=== PATIENT | male | born 1995 | race Caucasian/White ===

== ENCOUNTER 2017-02-26 22:37 | Emergency (ER) | payer BC, MEDICAID, OTHER ==
[~2017-02-26] VITALS: Ht 180.3 cm; Wt 75.0 kg
[~2017-02-26 22:37] MED LIST: ALBU17I INH; Z.0.NO CURRENT MEDS
[2017-02-26 23:08] VITALS: BP 134/60; PULSE 90; RESP 12; TEMP 99.8; O2SAT 96
[2017-02-26] MEDS ORDERED: RESP: LIDOCAINE HCL 4% PF 5 ML NEB NEB ONE (23:45)
[2017-02-26] MEDS ORDERED: RESP: ALBUTEROL 2.5 MG/IPRATROPIUM 0.5 MG NEB (SCH) NEB ONE (23:45)
[2017-02-26] MEDS ORDERED: predniSONE 20 MG TAB PO ONE (23:45)
--- NOTE | 2017-02-26 23:47 | PD ---
HPI Chief Complaint: Respiratory Symptoms Time Seen by Provider: 23:36 Travel History International Travel<30 days: No Contact w/Intl Traveler<30days: No Traveled to known affect area: No History of Present Illness HPI The patient is a 21-year-old male who presents to the emergency department for 2 day history of chest pain, shortness of breath, and cough. The patient complains of anterior chest tightness, mild and intermittent shortness of breath. He also complains of a productive cough producing dark colored sputum without any visible blood. The patient denies any personal history of reactive airway disease, asthma, bronchitis, or pneumonia. The patient denies any tobacco use. 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 He does note subjective fevers without any chills or sweats. He denies any sore throat. Symptoms are moderate, there are no current alleviating or exacerbating factors. PFSH Past Medical History Medical History: Denies Significant Hx Developmental Delay: No Immunizations Current: Yes Past Surgical History Narrative Surgical [place] tooth surgery Social History Alcohol Use: No Tobacco Use: No Substance Use: No Allergies-Medications (Allergen,Severity, Reaction): Coded Allergies: No Known Allergies (Verified , 02/26/17) Reported Meds & Prescriptions Reported Meds & Active Scripts Active Proventil Mdi (Albuterol Sulfate) 17 Gm Aero 2 Puff INH Q4HPRN Reported No Current Meds (Miscellaneous Medication) Misc Review of Systems Except as stated in HPI: all other systems reviewed are Neg General / Constitutional: Positive: Fever (subjective) HENT: Positive: Rhinitis Cardiovascular: Positive: Chest Pain or Discomfort Respiratory: Positive: Cough, Shortness of Breath Gastrointestinal: No: Nausea, Vomiting, Abdominal Pain Musculoskeletal: No: Myalgias, Arthralgias Physical Exam Narrative GENERAL: Awake, alert, pleasant 21-year-old male who appears his stated age and is in no acute respiratory distress. SKIN: Focused skin assessment warm/dry. HEAD: Atraumatic. Normocephalic. EYES: Pupils equal and round. No scleral icterus. No injection or drainage. ENT: No nasal bleeding or discharge. Mild erythema but no exudate. NECK: Trachea midline. No JVD. CARDIOVASCULAR: Regular rate and rhythm. No murmur appreciated. RESPIRATORY: No accessory muscle use. Few scattered wheezes. GASTROINTESTINAL: Abdomen soft, non-tender, nondistended. No rebound tenderness. MUSCULOSKELETAL: No obvious deformities. No clubbing. No cyanosis. No edema. NEUROLOGICAL: Awake and alert. No obvious cranial nerve deficits. Motor grossly within normal limits. Normal speech. PSYCHIATRIC: Appropriate mood and affect; insight and judgment normal. Data Data Last Documented VS Vital Signs Date Time Temp Pulse Resp B/P Pulse Ox O2 Delivery O2 Flow Rate FiO2 02/26/17 23:08 99.8 90 12 134/60 96 Room Air Orders Chest, Single Ap (02/26/17 ) Albuterol-Ipratropium Neb (Duoneb Neb) (02/26/17 23:45) Lidocaine Pf 4% Neb (Lidocaine Pf 4% Neb (02/26/17 23:45) Prednisone (Deltasone) (02/26/17 23:45) MDM Medical Decision Making Medical Screen Exam Complete: Yes Emergency Medical Condition: Yes Medical Record Reviewed: Yes Interpretation(s) Last Impressions Chest X-Ray 02/26/17 0000 Signed Impressions: Service Date/Time: Sunday, February 26, 2017 23:50 - CONCLUSION: Normal examination. Thomas Alberto Jr., MD Differential Diagnosis Differential diagnosis includes bronchitis, pneumonia, pulmonary embolism, pericarditis, URI, viral syndrome, CHF, IHSS, cardiomyopathy. Narrative Course Chest x-ray was obtained. The patient was administered prednisone 60 mg orally and duo neb 1 with respiratory lidocaine. Chest x-ray reveals a normal examination. The patient's symptoms are consistent with bronchitis versus walking pneumonia, possibly Mycoplasma pneumonia. Patient will be treated with prednisone, albuterol inhaler, Zithromax. The patient is advised to follow-up with a primary physician return if symptoms worsen or progress. He is also advised that his cough may persist for 4-6 weeks. He is advised to follow-up with a primary physician. Diagnosis Primary Impression: Bronchitis Patient Instructions: General Instructions Additional Instructions: Medications as directed. Plenty fluids to stay hydrated. Follow-up with a regular primary physician. Return if symptoms worsen or progress. Med/Other Pt SpecificInfo: Prescription(s) given Scripts Albuterol 18 GM Inh (Ventolin Hfa 18 GM Inh)90 Mcg/Act Aer2 Puff INH Q4H PRN ( SHORTNESS OF BREATH) #1 INHALER Ref 0 Prov:Johnny Lee MD 02/27/17 Azithromycin (Zithromax Z-Devon)250 Mg [id number] Mg PO DIRECTED #1 DSPK Ref 0 500 MG (2 tabs) day 1, then 1 tab days 2-5. Prov:Johnny Lee MD 02/27/17 Prednisone (Deltasone)20 Mg Tab40 Mg PO DAILY 4 Days Ref 0 Prov:Johnny Lee MD 02/27/17 Disposition: 01 DISCHARGE HOME Condition: Stable Johnny Lee MD February 26, 2017 23:47
--- NOTE | 2017-02-27 00:13 | RADRPT ---
EXAM DATE/TIME: 02/26/2017 23:50 [facility] COMPARISON: No previous studies available for comparison. INDICATIONS : Cough. MEDICAL HISTORY : None. SURGICAL HISTORY : None. ENCOUNTER: Initial ACUITY: 2 days PAIN SCORE: 110 LOCATION: Bilateral chest FINDINGS: 2 portable frontal views of the chest demonstrate the lungs to be symmetrically aerated without evide nce of mass, infiltrate or effusion. The cardiomediastinal contours are unremarkable. Osseous struc tures are intact. CONCLUSION: Normal examination. Thomas Alberto Jr., MD on February 27, 2017 at 0:11 Board Certified Radiologist. This report was verified electronically.
[2017-02-27] MEDS ORDERED: ZITHTAB PO (00:26)
[2017-02-27] MEDS ORDERED: PRED-503 PO (00:26)
[2017-02-27] MEDS ORDERED: VENTAER INH (00:26)
== END 2017-02-27 01:10 | disposition home or self-care (01) ==
LOC: NEPD 22:37
DX: J20.9 Acute bronchitis, unspecified (principal); R06.02 Shortness of breath; R05 Cough
CPT/HCPCS: 71010; 94664; 99284; J7512

== ENCOUNTER 2017-05-21 21:52 | Emergency (ER) | payer OTHER ==
[~2017-05-21] VITALS: Ht 193 cm; Wt 77.0 kg
[~2017-05-21 21:52] MED LIST changes: -ALBU17I INH; +PRED-503 PO; +VENTAER INH; -Z.0.NO CURRENT MEDS; +ZITHTAB PO
[2017-05-21 21:59] VITALS: BP 137/59; PULSE 71; RESP 18; TEMP 98.1; O2SAT 98
--- NOTE | 2017-05-21 22:16 | PD ---
HPI Chief Complaint: Medical Clearance Time Seen by Provider: 21:58 Travel History International Travel<30 days: No Contact w/Intl Traveler<30days: No Traveled to known affect area: No History of Present Illness HPI The patient is a 21-year-old male who presents emergency department after a panic attack. The patient does have a history of panic attacks, states he lost his older brother, age 32, week ago last Saturday. They just returned from [place] after the . The patient went [place] earlier [place] and when he returned home he suddenly started crying and had a panic attack according to family. Family states the patient started hyperventilating, was having carpopedal spasms, and appeared to have passed out. However, the patient never did lose consciousness. The patient states his symptoms have resolved since he has slowed his breathing. He denies any swallow lower extremities or history of pulmonary embolism/DVT. He does have a history of similar symptoms in the past secondary to hyperventilation. Symptoms are mild, exacerbated by stress, and currently self alleviating. PFSH Past Medical History Asthma: Yes (SPORTS INDUCED) Developmental Delay: No Diminished Hearing: No Immunizations Current: Yes Tetanus Vaccination: Unknown Influenza Vaccination: No Past Surgical History Oral Surgery: Yes (WISDOM TEETH) Social History Alcohol Use: Yes (OCCASSIONALLY) Tobacco Use: No Substance Use: No Allergies-Medications (Allergen,Severity, Reaction): Coded Allergies: No Known Allergies (Verified , 05/21/17) Reported Meds & Prescriptions Reported Meds & Active Scripts Active No Active Prescriptions or Reported Medications Review of Systems Except as stated in HPI: all other systems reviewed are Neg Cardiovascular: No: Chest Pain or Discomfort Respiratory: Positive: Other (hyperventilation), No: Shortness of Breath Musculoskeletal: Positive: Cramping Psychiatric: Positive: Other (panic attacks) Physical Exam Narrative GENERAL: Awake, alert, very pleasant 21-year-old male who appears his stated age and is in no acute respiratory distress. SKIN: Focused skin assessment warm/dry. HEAD: Atraumatic. Normocephalic. EYES: Pupils equal and round. No scleral icterus. No injection or drainage. NECK: Trachea midline. No JVD. CARDIOVASCULAR: Regular rate and rhythm. No murmur appreciated. RESPIRATORY: No accessory muscle use. Clear to auscultation. Breath sounds equal bilaterally. No tachypnea noted in the emergency department. GASTROINTESTINAL: Abdomen soft, non-tender, nondistended. MUSCULOSKELETAL: No obvious deformities. No clubbing. No cyanosis. No edema. NEUROLOGICAL: Awake and alert. No obvious cranial nerve deficits. Motor grossly within normal limits. Normal speech. Alert and oriented 4. Follows commands without difficulty. PSYCHIATRIC: Appropriate mood and affect; insight and judgment normal. Data Data Last Documented VS Vital Signs Date Time Temp Pulse Resp B/P Pulse Ox O2 Delivery O2 Flow Rate FiO2 05/21/17 21:59 98.1 71 18 137/59 98 MDM Medical Decision Making Medical Screen Exam Complete: Yes Emergency Medical Condition: Yes Medical Record Reviewed: Yes Differential Diagnosis Differential diagnosis includes hyperventilation syndrome, panic attack, adjustment reaction, stress reaction, pulmonary embolism, grief. Narrative Course The patient's history is consistent with probable hyperventilation syndrome with carpopedal spasm. The patient symptoms have currently resolved. He was placed on pulse oximetry monitoring and was observed in the emergency department for one hour. The patient had no further panic attacks in the emergency department. The father asked me to talk to the patient about possible therapy. I did advise the patient he can go to therapy to learn coping skills and ways to deal with his grief, however, I do not believe there is any acute medical management/pharmacy needed. Diagnosis Primary Impression: Hyperventilation syndrome Additional Impression: Grief Patient Instructions: General Instructions Additional Instructions: Follow-up with therapy for possible grief counseling and/or ways to manage stress. Return if symptoms worsen or progress. Med/Other Pt SpecificInfo: No Change to Meds Scripts No Active Prescriptions or Reported Meds Disposition: 01 DISCHARGE HOME Condition: Stable Johnny Lee MD May 21, 2017 22:16
== END 2017-05-21 23:28 | disposition home or self-care (01) ==
LOC: NEPD 21:52
DX: F45.8 Other somatoform disorders (principal); F43.29 Adjustment disorder with other symptoms
CPT/HCPCS: 99283